=== PATIENT | male | born 1955 | race Caucasian/White ===

== ENCOUNTER 2022-10-09 12:42 | Emergency (ER) | payer MEDICAID, MEDICARE ==
[~2022-10-09] VITALS: Ht 185.4 cm; Wt 93.0 kg
--- NOTE | 2022-10-09 13:06 | NUR ---
DR STERN AT BEDSIDE FOR EVAL
--- NOTE | 2022-10-09 13:17 | NUR ---
NURA (BROTHER) [phone] BIGG MICHEL (FRIEND) [phone]
[2022-10-09] MEDS ORDERED: IV NS 0.9% 1,000 ML BAG IV ONE (13:30)
--- NOTE | 2022-10-09 13:30 | NUR ---
LAC #20, BLOOD DRAWN AND COLLECTED BY PHLEB AT BEDSIDE
[2022-10-09 13:41] LABS: BASOPHILS % (AUTO) 0.5 % (0.0-2.0); EOSINOPHILS % (AUTO) 0.6 % (0.0-6.0); HEMATOCRIT 46 % (39-51); HEMOGLOBIN 15.1 g/dL (13.5-17.5); LYMPHOCYTES # (AUTO) 0.9 K/uL (0.8-4.8); LYMPHOCYTES % (AUTO) 12.4 % (20.0-44.0); MEAN CORPUSCULAR HGB CONC 33 g/dl (31.0-36.0); MEAN CORPUSCULAR VOLUME 91 fL (80-96); MONOCYTES # (AUTO) 0.6 K/uL (0.1-1.30); MONOCYTES % (AUTO) 7.6 % (2.0-12.0); NEUTROPHILS # (AUTO) 5.9 K/uL (1.8-8.9); NEUTROPHILS % (AUTO) 78.9 % (43.0-81.0); PLATELET COUNT (AUTO) 232 K/uL (150-450); RED BLOOD CELL COUNT(AUTO) 5.03 MIL/uL (4.5-6.0); WHITE BLOOD COUNT (AUTO) 7.4 K/uL (4.3-11.0)
--- NOTE | 2022-10-09 14:03 | NUR ---
COVID SWAB TAKEN
[2022-10-09 14:04] LABS: BILIRUBIN,URINE 2+ (NEGATIVE); COLOR,URINE YELLOW (YELLOW); LEUKOCYTE ESTERASE ,URINE NEGATIVE (NEGATIVE); NITRITE, URINE NEGATIVE (NEGATIVE); PH,URINE 5.5 (5.0-8.0); PROTEIN,URINE TRACE mg/dl (NEGATIVE); UGLUCOSE NEGATIVE (NEGATIVE)
[2022-10-09 14:15] LABS: BACTERIA,URINE Rare /HPF (None Seen); RBC,URINE 0-2 /HPF (0-2); SQUAMOUS EPITHELIAL CELL,UR Few /HPF (None Seen); WBC,URINE 0-2 /HPF (0-3)
[2022-10-09 14:52] LABS: CALCIUM, SERUM 9.1 mg/dL (8.5-10.1); CARBON DIOXIDE 27 mmol/L (21-32); CHLORIDE 104 mmol/L (98-107); GLUCOSE 87 mg/dL (74-106); POTASSIUM 3.7 mmol/L (3.5-5.1); SODIUM SERUM 139 mmol/L (136-145); UREA NITROGEN, BLOOD 18 mg/dL (7-18)
[2022-10-09 14:58] LABS: ALANINE AMINOTRANSFERASE 48 U/L (12-78); ALBUMIN 3.9 g/dL (3.4-5.0); ALKALINE PHOSPHATASE 118 U/L (46-116); ASPARTATE AMINOTRANSFERASE 23 U/L (15-37); BILIRUBIN,DIRECT 0.2 mg/dL (0.0-0.2); BILIRUBIN,TOTAL 0.8 mg/dL (0.2-1.0); LIPASE 84 U/L (73-393); TOTAL PROTEIN, SERUM 7.6 g/dL (6.4-8.2)
[2022-10-09 15:03] LABS: MAGNESIUM 2.4 mg/dL (1.8-2.4)
[2022-10-09] MEDS ORDERED: IOHEXOL-300 100 ML VIAL IV ONE (15:09)
[2022-10-09] MEDS ORDERED: CT SWABBABLE VALVE TRANS SET 1 EA INFUS.SET MC ONE (15:09)
[2022-10-09] MEDS ORDERED: IV NS 0.9% 250 ML IV ONE (15:09)
--- NOTE | 2022-10-09 15:22 | NUR ---
PT RETURNED FROM RADIOLOGY
--- NOTE | 2022-10-09 16:14 | NUR ---
LEFT MESSAGE TO BILL (BROTHER)
--- NOTE | 2022-10-09 16:30 | NUR ---
IV removed. Catheter intact and site benign. Pressure and 4x4 applied to site. No bleeding noted.
--- NOTE | 2022-10-09 17:44 | NUR ---
EMT AT BEDSIDE TO PICKUP PT; ENDORSEMENT GIVEN
[2022-10-09 17:45] VITALS: BP 118/70
== END 2022-10-09 17:45 | disposition home or self-care (01) ==
LOC: ER 12:50
DX: R53.1 Weakness (principal); Z20.822 Contact with and (suspected) exposure to COVID-19; Z59.01 Sheltered homelessness
CPT/HCPCS: 99285; 74177; 96360; 71045; 87426; 93005; 85025; 80048; 82550; 87086; 83690; 80076; 83735; 81001; 36415; 84484; 83880; 82962; J7030; J7050; Q9967; C9803